=== PATIENT | female | born 1965 | race Caucasian/White ===

== ENCOUNTER 2023-12-02 09:48 | Day surgery (SDC) | payer MEDICAID ==
[~2023-12-02] VITALS: Ht 160 cm; Wt 79.0 kg
[2023-12-02] MEDS ORDERED: ONDANSETRON HCL 4 MG/2 ML VIAL IVP PRN (10:45)
[2023-12-02] MEDS ORDERED: HYDROmorphone 1 MG/ML INJ. CARTRIDGE IVP PRN (10:45)
[2023-12-02] MEDS ORDERED: MIDAZOLAM HCL 5 MG/5 ML VIAL IVP PRN (10:45)
[2023-12-02] MEDS ORDERED: MEPERIDINE HCL/PF 25 MG/ML DISP.SYRIN IVP PRN (10:45)
[2023-12-02] MEDS ORDERED: LR 1,000 ML IV SCH (10:45)
[2023-12-02] MEDS ORDERED: MORPHINE 4 MG INJ. 4 MG/ML VIAL IVP PRN (10:45)
[2023-12-02] MEDS ORDERED: DEXAMETHASONE SOD PHOSPHATE 4 MG/ML VIAL ONE (11:36)
[2023-12-02 14:15] VITALS: O2SAT 99
[2023-12-02 15:41] VITALS: BP_SYST 134; PULSE 83; RESP 18
== END 2023-12-02 14:35 | disposition home or self-care (01) ==
LOC: SMU 09:48 → SDS 09:48
PROVIDERS: ATTEND Obstetrics & Gynecology
DX: N95.0 Postmenopausal bleeding (principal); N84.0 Polyp of corpus uteri; Z87.09 Personal history of other diseases of the respiratory system
CPT/HCPCS: 87081; 58558; 88305; J3490; J1100; J2765; J2405; J2704; J0330; J7120; C1819